=== PATIENT | female | born 1935 | race Caucasian/White ===

== ENCOUNTER 2017-06-26 14:05 | Outpatient (CLI) | payer MEDICARE, BC | END 2017-06-26 14:06 | disposition home or self-care (01) | LOC: MADLABSP 14:05 | PROVIDERS: ATTEND Family Medicine | DX: R05 Cough (principal); R09.89 Other specified symptoms and signs involving the circulatory and respiratory systems ==

== ENCOUNTER 2018-06-14 17:07 | Emergency (ER) | payer MEDICARE, OTHER ==
[~2018-06-14 17:07] MED LIST: Acetaminophen 325 MG TAB ONE; Sodium Chloride 0.9% 1,000 ML BAG ONE; Sodium Chloride 0.9% 100 ML BAG ONE; Sodium Chloride 0.9% 500 ML BAG ONE
[2018-06-14 17:44] LABS: ALT (SGPT) 27 U/L (8-55); AST (SGOT) 40 U/L (5-34); Albumin 3.8 g/dL (3.4-4.8); Alkaline Phosphatase 55 U/L (40-150); Anion Gap 18 mmol/L (10-20); BUN (Urea Nitrogen) 31 mg/dL (9.8-20.1); Bilirubin, Total 0.3 mg/dL (0.2-1.2); CK (CPK) 213 U/L (29-168); Calc. Creatinine Clearance 0 mL/min (70-130); Calcium 9.5 mg/dL (7.8-10.44); Carbon Dioxide 23 mmol/L (23-31); Chloride 103 mmol/L (98-107); Estimated GFR-MDRD 49; Glucose 126 mg/dL (83-110); Potassium 3.9 mmol/L (3.5-5.1); Protein, Total 7.8 g/dL (6.0-8.3); Sodium 140 mmol/L (136-145)
[2018-06-14 17:47] LABS: Lymphocytes 15 % (21-51); MDiff Complete? YES; Mean Corpuscular HGB CONC 31.3 g/dL (32.0-36.0); Mean Corpuscular Hemoglobin 29.1 pg (27.0-31.0); Mean Platelet Volume 7.4 fL (7.4-10.4); Monocytes 2 % (0-10); Neutrophil 80 % (42-75); Platelet Count 313 thou/uL (130-400); Platelet Morphology Comment Appears Adequate; RBC Distribution Width 13.3 % (11.5-14.5); RBC Morphology Normal; Reactive Lymphocytes 3 % (0-10); Red Blood Cell (RBC) Count 4.13 mill/uL (4.20-5.40); White Blood Cell (WBC) Count 15.5 thou/uL (4.8-10.8)
[2018-06-14 18:19] LABS: CKMB 18.4 ng/mL (0-6.6)
[2018-06-14] MEDS ORDERED: Piperacillin/Tazobactam 3.375 GM VIAL ONE (18:26)
[2018-06-14] MEDS ORDERED: Enoxaparin Sodium 60 MG/0.6 ML SYRINGE ONE (18:26)
[2018-06-14] MEDS ORDERED: Sodium Chloride 0.9% 500 ML ONE (18:26)
[2018-06-14] MEDS ORDERED: Enoxaparin Sodium 40 MG/0.4 ML SYRINGE ONE ×2 (18:26→18:28)
--- NOTE | 2018-06-14 19:43 | RAD ---
PORTABLE CHEST: 06/14/18 PROVIDED CLINICAL HISTORY: Cough. FINDINGS: Comparison 06/30/09. Evaluation is limited by patient body habitus. Cardiac silhouette appears enlarged. Left subclavian c ardiac pacing device is redemonstrated in similar position. There are bibasilar pleural and parenchym al opacities that may reflect volume loss, infiltrate or effusion. Some combination of these is also possible. No evidence for pneumothorax. IMPRESSION: Limited study with evidence for bibasilar pleural parenchymal opacity. Followup recommended. POS: [facility]
== END 2018-06-14 20:05 | disposition short-term general hospital (02) ==
LOC: MADERS 17:07
DX: J18.9 Pneumonia, unspecified organism (principal); A41.9 Sepsis, unspecified organism; R09.02 Hypoxemia; I21.4 Non-ST elevation (NSTEMI) myocardial infarction; I10 Essential (primary) hypertension; E78.5 Hyperlipidemia, unspecified; E66.9 Obesity, unspecified; F32.9 Major depressive disorder, single episode, unspecified; Z86.73 Personal history of transient ischemic attack (TIA), and cerebral infarction without residual deficits
CPT/HCPCS: 71045; 80053; 82550; 82553; 83605; 83880; 84484; 85025; 87040; 93005; 94640; 94760; 96365; 96372; 96375; J1650; J1956; J2543; J7050; J7620